=== PATIENT | female | born 1960 | race African-American/Black ===

== ENCOUNTER 2018-11-29 14:17 | Emergency (ER) | payer SELFPAY ==
[~2018-11-29] VITALS: Ht 162.6 cm; Wt 81.6 kg
[2018-11-29 14:17] VITALS: BP 142/100
[2018-11-29] MEDS ORDERED: Isovue-300 100ml vial INJ PRN (15:00)
[2018-11-29] MEDS ORDERED: Morphine Sulfate 2mg/ml Inj(IV/IM USE ONLY) IVP ONE (15:00)
[2018-11-29 15:24] VITALS: BP 137/84
[2018-11-29 15:37] LABS: BASOPHILS % (AUTO) 1.4 % (0.0-2.0); EOSINOPHILS % (AUTO) 0.5 % (0.0-3.0); HEMATOCRIT 39.2 % (37.0-47.0); HEMOGLOBIN 13.8 G/DL (12.0-16.0); MEAN CORPUSCULAR VOLUME 81 FL (80-99); MONOCYTES % (AUTO) 3.2 % (1.0-10.0); PLATELET COUNT 243 K/UL (150-450); RED BLOOD COUNT 4.83 M/UL (4.20-5.40); RED CELL DISTRIBUTION WIDTH 10.8 % (11.6-14.8); WHITE BLOOD COUNT 6.2 K/UL (4.8-10.8)
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
[2018-11-29 15:45] LABS: ANION GAP 9 mmol/L (5-15); BLOOD UREA NITROGEN 12 mg/dL (7-18); CALCIUM 9.4 MG/DL (8.5-10.1); CARBON DIOXIDE 27 MMOL/L (21-32); CHLORIDE 99 MMOL/L (98-107); POTASSIUM 4.2 MMOL/L (3.5-5.1); SODIUM 135 MMOL/L (136-145)
[2018-11-29] MEDS ORDERED: Morphine Sulfate 4mg/ml Inj (IV USE ONLY) IVP ONE (16:30)
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
[2018-11-29] MEDS ORDERED: NORCO 5-325 TA1 EACH ORAL (17:25)
[2018-11-29] MEDS ORDERED: LIDODERM700 M1 TOPIC (17:25)
[2018-11-29] MEDS ORDERED: HYDROcodone/Acetamin 5/325 tab ORAL ONE (17:30)
[2018-11-29 17:54] VITALS: BP 133/78
== END 2018-11-29 18:04 | disposition left against medical advice (07) ==
LOC: EDBD 14:17 → EMR 14:50 → EDBEDREQ 16:05 → CANBEDREQ 16:30 → EMR 18:04
DX: S22.32XA Fracture of one rib, left side, initial encounter for closed fracture (principal); S00.93XA Contusion of unspecified part of head, initial encounter; S16.1XXA Strain of muscle, fascia and tendon at neck level, initial encounter; S20.212A Contusion of left front wall of thorax, initial encounter; E11.65 Type 2 diabetes mellitus with hyperglycemia; I10 Essential (primary) hypertension; V43.62XA Car passenger injured in collision with other type car in traffic accident, initial encounter; Y92.410 Unspecified street and highway as the place of occurrence of the external cause
CPT/HCPCS: 36415; 70450; 71260; 72125; 74177; 80048; 82962; 85025; 96361; 96374; 96376; 99284; J2270; Q9967